=== PATIENT | female | born 1950 | race Asian ===

== ENCOUNTER 2017-11-01 07:19 | Outpatient (CLI) | payer OTHER | END 2017-11-01 08:12 | disposition home or self-care (01) | LOC: LAB 07:19 | DX: E11.9 Type 2 diabetes mellitus without complications (principal); E78.4 Other hyperlipidemia ==

== ENCOUNTER 2017-11-23 09:19 | Outpatient (CLI) | payer OTHER | END 2017-11-23 09:26 | disposition home or self-care (01) | LOC: MAMO-SONO 09:19 | DX: Z12.31 Encounter for screening mammogram for malignant neoplasm of breast (principal); Z87.898 Personal history of other specified conditions; N63.10 Unspecified lump in the right breast, unspecified quadrant; N63.20 Unspecified lump in the left breast, unspecified quadrant ==

== ENCOUNTER 2017-11-23 10:40 | Outpatient (CLI) | payer OTHER | END 2017-11-23 11:30 | disposition home or self-care (01) | LOC: NUCLEAR 10:40 | DX: M81.0 Age-related osteoporosis without current pathological fracture (principal) ==

== ENCOUNTER 2018-02-01 07:13 | Outpatient (CLI) | payer OTHER | END 2018-02-01 07:21 | disposition home or self-care (01) | LOC: LAB 07:13 | DX: I10 Essential (primary) hypertension (principal); Z12.11 Encounter for screening for malignant neoplasm of colon; E78.2 Mixed hyperlipidemia; N39.0 Urinary tract infection, site not specified ==

== ENCOUNTER 2018-05-03 07:59 | Outpatient (CLI) | payer OTHER | END 2018-05-03 08:07 | disposition home or self-care (01) | LOC: LAB 07:59 | DX: D64.89 Other specified anemias (principal); E03.8 Other specified hypothyroidism; N39.0 Urinary tract infection, site not specified ==

== ENCOUNTER 2018-06-28 08:03 | Outpatient (CLI) | payer OTHER | END 2018-06-28 08:23 | disposition home or self-care (01) | LOC: SONOGRAMA 08:03 | DX: E03.8 Other specified hypothyroidism (principal); E04.1 Nontoxic single thyroid nodule ==

== ENCOUNTER 2018-07-18 10:07 | Outpatient (CLI) | payer OTHER | END 2018-07-18 10:13 | disposition home or self-care (01) | LOC: SONOGRAMA 10:07 | DX: E04.2 Nontoxic multinodular goiter (principal) ==

== ENCOUNTER 2018-07-19 08:10 | Outpatient (CLI) | payer OTHER | END 2018-07-19 08:17 | disposition home or self-care (01) | LOC: LAB 08:10 | DX: E03.8 Other specified hypothyroidism (principal) ==

== ENCOUNTER 2018-10-04 08:53 | Outpatient (CLI) | payer OTHER | END 2018-10-04 09:01 | disposition home or self-care (01) | LOC: LAB 08:53 | DX: I10 Essential (primary) hypertension (principal); E78.00 Pure hypercholesterolemia, unspecified; N39.0 Urinary tract infection, site not specified ==

== ENCOUNTER 2018-11-30 10:39 | Outpatient (CLI) | payer OTHER | END 2018-11-30 11:05 | disposition home or self-care (01) | LOC: MAMO-SONO 10:39 | DX: Z12.31 Encounter for screening mammogram for malignant neoplasm of breast (principal); Z87.898 Personal history of other specified conditions; N64.4 Mastodynia ==

== ENCOUNTER 2019-01-03 08:35 | Outpatient (CLI) | payer OTHER | END 2019-01-03 08:41 | disposition home or self-care (01) | LOC: LAB 08:35 | DX: N39.0 Urinary tract infection, site not specified (principal); I10 Essential (primary) hypertension; D64.89 Other specified anemias ==

== ENCOUNTER 2019-06-15 06:46 | Outpatient (CLI) | payer OTHER | END 2019-06-15 06:55 | disposition home or self-care (01) | LOC: LAB 06:46 | DX: I10 Essential (primary) hypertension (principal); Z12.12 Encounter for screening for malignant neoplasm of rectum; E78.00 Pure hypercholesterolemia, unspecified ==

== ENCOUNTER 2019-06-16 09:56 | Outpatient (CLI) | payer OTHER | END 2019-06-16 10:29 | disposition home or self-care (01) | LOC: LAB 09:56 | DX: Z12.12 Encounter for screening for malignant neoplasm of rectum (principal); I10 Essential (primary) hypertension; E78.00 Pure hypercholesterolemia, unspecified ==

== ENCOUNTER 2019-09-09 07:25 | Outpatient (CLI) | payer OTHER | END 2019-09-09 07:29 | disposition home or self-care (01) | LOC: LAB 07:25 | DX: E55.9 Vitamin D deficiency, unspecified (principal); E78.00 Pure hypercholesterolemia, unspecified ==

== ENCOUNTER 2019-12-06 14:12 | Outpatient (CLI) | payer OTHER | END 2019-12-06 14:28 | disposition home or self-care (01) | LOC: MAMO-SONO 14:12 | DX: Z12.31 Encounter for screening mammogram for malignant neoplasm of breast (principal); Z87.898 Personal history of other specified conditions ==

== ENCOUNTER 2019-12-09 08:13 | Outpatient (CLI) | payer OTHER | END 2019-12-09 08:27 | disposition home or self-care (01) | LOC: LAB 08:13 | DX: E78.00 Pure hypercholesterolemia, unspecified (principal); N39.0 Urinary tract infection, site not specified; I10 Essential (primary) hypertension ==

== ENCOUNTER 2019-12-22 14:18 | Outpatient (CLI) | payer OTHER | END 2019-12-22 16:00 | disposition home or self-care (01) | LOC: NUCLEAR 14:18 | DX: M81.0 Age-related osteoporosis without current pathological fracture (principal) ==

== ENCOUNTER 2020-04-09 07:13 | Outpatient (CLI) | payer OTHER | END 2020-04-09 07:17 | disposition home or self-care (01) | LOC: LAB 07:13 | DX: R73.01 Impaired fasting glucose (principal); Z12.12 Encounter for screening for malignant neoplasm of rectum; E78.00 Pure hypercholesterolemia, unspecified ==

== ENCOUNTER 2020-07-09 07:49 | Outpatient (CLI) | payer OTHER | END 2020-07-09 08:23 | disposition home or self-care (01) | LOC: LAB 07:49 | DX: R73.01 Impaired fasting glucose (principal); E78.00 Pure hypercholesterolemia, unspecified ==

== ENCOUNTER 2020-10-09 06:56 | Outpatient (CLI) | payer OTHER | END 2020-10-09 07:02 | disposition home or self-care (01) | LOC: LAB 06:56 | DX: I10 Essential (primary) hypertension (principal); R73.01 Impaired fasting glucose; E78.00 Pure hypercholesterolemia, unspecified ==

== ENCOUNTER 2021-01-08 06:36 | Outpatient (CLI) | payer OTHER | END 2021-01-08 06:46 | disposition home or self-care (01) | LOC: LAB 06:36 | PROVIDERS: ATTEND Obstetrics & Gynecology | DX: D64.89 Other specified anemias (principal); I10 Essential (primary) hypertension; Z12.12 Encounter for screening for malignant neoplasm of rectum; R73.01 Impaired fasting glucose; E78.00 Pure hypercholesterolemia, unspecified; N39.0 Urinary tract infection, site not specified; D50.0 Iron deficiency anemia secondary to blood loss (chronic); K63.89 Other specified diseases of intestine; E55.9 Vitamin D deficiency, unspecified; E78.49 Other hyperlipidemia ==

== ENCOUNTER 2021-01-08 08:19 | Outpatient (CLI) | payer OTHER | END 2021-01-08 08:29 | disposition home or self-care (01) | LOC: MAMO-SONO 08:19 | PROVIDERS: ATTEND Obstetrics & Gynecology | DX: Z12.31 Encounter for screening mammogram for malignant neoplasm of breast (principal); Z87.898 Personal history of other specified conditions; N63.0 Unspecified lump in unspecified breast ==

== ENCOUNTER 2021-04-08 06:48 | Outpatient (CLI) | payer OTHER | END 2021-04-08 06:49 | disposition home or self-care (01) | LOC: LAB 06:48 | DX: R73.01 Impaired fasting glucose (principal); I10 Essential (primary) hypertension; E03.8 Other specified hypothyroidism ==

== ENCOUNTER 2021-04-22 10:54 | Outpatient (CLI) | payer OTHER | END 2021-04-22 11:02 | disposition home or self-care (01) | LOC: SONOGRAMA 10:54 | DX: E03.9 Hypothyroidism, unspecified (principal) ==

== ENCOUNTER 2021-06-18 14:31 | Outpatient (CLI) | payer OTHER | END 2021-06-18 14:32 | disposition home or self-care (01) | LOC: LAB 14:31 | PROVIDERS: ATTEND Internal Medicine Endocrinology, Diabetes & Metabolism | DX: E03.8 Other specified hypothyroidism (principal) ==

== ENCOUNTER 2021-06-25 13:48 | Outpatient (CLI) | payer OTHER | END 2021-06-25 13:49 | disposition home or self-care (01) | LOC: MAMO-SONO 13:48 | PROVIDERS: ATTEND Internal Medicine Endocrinology, Diabetes & Metabolism | DX: N60.11 Diffuse cystic mastopathy of right breast (principal); E04.2 Nontoxic multinodular goiter ==

== ENCOUNTER → 2021-07-08 06:50 | Outpatient (CLI) | payer OTHER | END | disposition home or self-care (01) | LOC: LAB 06:50 | DX: E03.8 Other specified hypothyroidism (principal); E78.00 Pure hypercholesterolemia, unspecified; D64.89 Other specified anemias; R10.84 Generalized abdominal pain; E78.49 Other hyperlipidemia; E55.9 Vitamin D deficiency, unspecified; E11.9 Type 2 diabetes mellitus without complications; Z13.6 Encounter for screening for cardiovascular disorders ==

== ENCOUNTER 2021-09-09 07:31 | Outpatient (CLI) | payer OTHER | END 2021-09-09 07:33 | disposition home or self-care (01) | LOC: LAB 07:31 | PROVIDERS: ATTEND Internal Medicine Cardiovascular Disease | DX: D64.89 Other specified anemias (principal); R10.84 Generalized abdominal pain; E78.49 Other hyperlipidemia; E55.9 Vitamin D deficiency, unspecified; R73.09 Other abnormal glucose; I10 Essential (primary) hypertension ==

== ENCOUNTER 2021-09-30 06:52 | Outpatient (CLI) | payer OTHER | END 2021-09-30 06:59 | disposition home or self-care (01) | LOC: LAB 06:52 | DX: E03.8 Other specified hypothyroidism (principal) ==

== ENCOUNTER 2021-12-31 07:13 | Outpatient (CLI) | payer OTHER | END 2021-12-31 07:14 | disposition home or self-care (01) | LOC: LAB 07:13 | DX: D64.9 Anemia, unspecified (principal); R10.9 Unspecified abdominal pain; E78.5 Hyperlipidemia, unspecified; E55.9 Vitamin D deficiency, unspecified; E11.9 Type 2 diabetes mellitus without complications; I10 Essential (primary) hypertension; E78.00 Pure hypercholesterolemia, unspecified; E03.8 Other specified hypothyroidism; N39.0 Urinary tract infection, site not specified ==

== ENCOUNTER 2022-01-27 13:48 | Outpatient (CLI) | payer OTHER | END 2022-01-27 13:56 | disposition home or self-care (01) | LOC: MAMO-SONO 13:48 | PROVIDERS: ATTEND Obstetrics & Gynecology | DX: Z12.31 Encounter for screening mammogram for malignant neoplasm of breast (principal); N63.0 Unspecified lump in unspecified breast ==

== ENCOUNTER 2022-01-27 14:06 | Outpatient (CLI) | payer OTHER | END 2022-01-27 14:07 | disposition home or self-care (01) | LOC: NUCLEAR 14:06 | PROVIDERS: ATTEND Obstetrics & Gynecology | DX: M81.0 Age-related osteoporosis without current pathological fracture (principal) ==

== ENCOUNTER → 2022-01-27 15:36 | Outpatient (CLI) | payer OTHER | END | disposition home or self-care (01) | LOC: LAB 13:14 | PROVIDERS: ATTEND Obstetrics & Gynecology | DX: M83.9 Adult osteomalacia, unspecified (principal); R97.1 Elevated cancer antigen 125 [CA 125] ==

== ENCOUNTER 2022-04-14 07:14 | Outpatient (CLI) | payer OTHER | END 2022-04-14 07:16 | disposition home or self-care (01) | LOC: LAB 07:14 | DX: R73.01 Impaired fasting glucose (principal); E78.00 Pure hypercholesterolemia, unspecified; I10 Essential (primary) hypertension ==

== ENCOUNTER → 2022-05-20 13:37 | Outpatient (CLI) | payer OTHER | END | disposition home or self-care (01) | LOC: LAB 13:37 | PROVIDERS: ATTEND Podiatrist Foot Surgery | DX: R94.5 Abnormal results of liver function studies (principal) ==

== ENCOUNTER 2022-07-01 07:19 | Outpatient (CLI) | payer OTHER | END 2022-07-01 07:23 | disposition home or self-care (01) | LOC: LAB 07:19 | PROVIDERS: ATTEND Internal Medicine Cardiovascular Disease | DX: D64.9 Anemia, unspecified (principal); R10.9 Unspecified abdominal pain; E78.5 Hyperlipidemia, unspecified; E55.9 Vitamin D deficiency, unspecified; E11.9 Type 2 diabetes mellitus without complications ==

== ENCOUNTER 2022-11-29 16:25 | Emergency (ER) | payer OTHER ==
[~2022-11-29] VITALS: Ht 162.6 cm; Wt 64.9 kg
[2022-11-29] MEDS ORDERED: ATORVASTATIN CA20 MG PO (16:36)
== END 2022-11-29 18:02 | disposition home or self-care (01) ==
LOC: ER 16:25
DX: I10 Essential (primary) hypertension (principal)

== ENCOUNTER → 2022-11-30 08:27 | Outpatient (CLI) | payer OTHER | END | disposition home or self-care (01) | LOC: LAB 08:27 | DX: I10 Essential (primary) hypertension (principal); E78.00 Pure hypercholesterolemia, unspecified; R73.01 Impaired fasting glucose; Z12.11 Encounter for screening for malignant neoplasm of colon; N39.0 Urinary tract infection, site not specified; D64.9 Anemia, unspecified; R10.9 Unspecified abdominal pain; E55.9 Vitamin D deficiency, unspecified ==

== ENCOUNTER → 2022-11-30 | Emergency (ER) | payer OTHER ==
[~2022-11-30] VITALS: Ht 162.6 cm; Wt 64.9 kg
[~2022-11-30] MED LIST: ATORVASTATIN CA20 MG PO
== END | disposition home or self-care (01) ==
LOC: ER 09:08
DX: R51.9 Headache, unspecified (principal)

== ENCOUNTER 2023-02-09 10:32 | Outpatient (CLI) | payer OTHER | END 2023-02-09 10:38 | disposition home or self-care (01) | LOC: MAMO-SONO 10:32 | PROVIDERS: ATTEND Obstetrics & Gynecology Obstetrics | DX: Z12.31 Encounter for screening mammogram for malignant neoplasm of breast (principal); N64.0 Fissure and fistula of nipple; N63.0 Unspecified lump in unspecified breast; R10.2 Pelvic and perineal pain ==

== ENCOUNTER 2023-03-02 07:13 | Outpatient (CLI) | payer OTHER | END 2023-03-02 07:16 | disposition home or self-care (01) | LOC: LAB 07:13 | DX: E03.8 Other specified hypothyroidism (principal); I10 Essential (primary) hypertension; R73.01 Impaired fasting glucose; E78.00 Pure hypercholesterolemia, unspecified ==

== ENCOUNTER → 2023-05-29 08:23 | Outpatient (CLI) | payer OTHER | END | disposition home or self-care (01) | LOC: LAB 08:23 | DX: N39.0 Urinary tract infection, site not specified (principal); R73.01 Impaired fasting glucose; Z13.1 Encounter for screening for diabetes mellitus; E78.2 Mixed hyperlipidemia; I11.9 Hypertensive heart disease without heart failure; Z68.24 Body mass index [BMI] 24.0-24.9, adult ==

== ENCOUNTER → 2023-10-04 07:07 | Outpatient (CLI) | payer OTHER ==
[2023-10-04 08:07] LABS: URINE APPEARANCE Clear; URINE BILIRRUBIN Negative (NEGATIVE); URINE BLOOD Small; URINE COLOR Yellow; URINE GLUCOSE Negative (NEGATIVE); URINE LEUKOCYTE Moderate; URINE NITRATE Negative; URINE PROTEIN Negative (NEGATIVE); URINE UROBILINOGEN 0.2 E.U./dl
[2023-10-04 08:08] LABS: URINE EPITHELIAL CELLS 5.8 uL (0.0-38.8); URINE RBC 12.2 uL (0.0-20.8); URINE WBC 59.8 uL (0.0-23.2)
[2023-10-04 09:12] LABS: HEMOGLOBIN 12.8 g/dL (12.0-15.00); MEAN CELL VOLUME 91.4 fL (80.00-100.00); MEAN CORPUSCULAR HEMOGLOBIN 30.8 pg (27.00-32.0); MEAN CORPUSCULAR HGB CONC 33.7 g/dl (32.0-36.0); PLATELET COUNT 266 K/uL (150-450); RED BLOOD COUNT 4.16 M/uL (4.00-6.00); RED CELL DISTRIBUTION WIDTH 13.3 % (11.5-14.5)
[2023-10-04 09:53] LABS: ALBUMIN 3.6 gm/dL (3.4-5.0); BILIRUBIN TOTAL 0.41 mg/dL (0.3-1.2); CALCIUM 9.2 mg/dL (8.5-10.1); CHOL HDL RATIO 2.1 (0-5.0); CREATININE SERUM 0.67 mg/dL (0.55-1.02); GFR 86.76; GLOBULINA 3.5 G/DL (2.4-3.5); POTASSIUM 4.16 mEq/L (3.5-5.1); TOTAL PROTEIN 7.1 gm/dL (6.4-8.2)
== END | disposition home or self-care (01) ==
LOC: LAB 07:07
DX: R73.01 Impaired fasting glucose (principal); N39.0 Urinary tract infection, site not specified; D64.9 Anemia, unspecified; R10.9 Unspecified abdominal pain; E78.5 Hyperlipidemia, unspecified; R73.09 Other abnormal glucose

== ENCOUNTER 2024-01-04 07:26 | Outpatient (CLI) | payer OTHER ==
[2024-01-04 08:09] LABS: URINE APPEARANCE Clear; URINE BILIRRUBIN Negative (NEGATIVE); URINE BLOOD Trace; URINE COLOR Yellow; URINE GLUCOSE Negative (NEGATIVE); URINE LEUKOCYTE Negative; URINE NITRATE Negative; URINE PROTEIN Negative (NEGATIVE); URINE UROBILINOGEN 0.2 E.U./dl
[2024-01-04 08:10] LABS: HEMATOCRIT 38.4 % (36.0-45.00); HEMOGLOBIN 13.2 g/dL (12.0-15.00); MEAN CELL VOLUME 90.7 fL (80.00-100.00); MEAN CORPUSCULAR HEMOGLOBIN 31.2 pg (27.00-32.0); MEAN CORPUSCULAR HGB CONC 34.3 g/dl (32.0-36.0); PLATELET COUNT 230 K/uL (150-450); RED BLOOD COUNT 4.23 M/uL (4.00-6.00); RED CELL DISTRIBUTION WIDTH 14.4 % (11.5-14.5)
[2024-01-04 08:13] LABS: URINE BACTERIA 26.4 uL (0.0-1933); URINE RBC 2.2 uL (0.0-20.8)
[2024-01-04 08:40] LABS: ALBUMIN 3.9 gm/dL (3.4-5.0); BILIRUBIN TOTAL 0.53 mg/dL (0.3-1.2); CALCIUM 9.3 mg/dL (8.5-10.1); CHOL HDL RATIO 2.3 (0-5.0); CREATININE SERUM 0.71 mg/dL (0.55-1.02); GFR 80.92; GLOBULINA 3.1 G/DL (2.4-3.5); POTASSIUM 4.39 mEq/L (3.5-5.1)
[2024-01-04 09:21] LABS: URINE EPITHELIAL CELLS 0.7 uL (0.0-38.8); URINE WBC 0.9 uL (0.0-23.2)
== END 2024-01-04 07:27 | disposition home or self-care (01) ==
LOC: LAB 07:26
DX: D64.9 Anemia, unspecified (principal); I10 Essential (primary) hypertension; N39.0 Urinary tract infection, site not specified

== ENCOUNTER 2024-07-06 07:08 | Outpatient (CLI) | payer OTHER ==
[2024-07-06 07:45] LABS: HEMATOCRIT 38.9 % (36.0-45.00); HEMOGLOBIN 13.4 g/dL (12.0-15.00); MEAN CELL VOLUME 91.9 fL (80.00-100.00); MEAN CORPUSCULAR HEMOGLOBIN 31.6 pg (27.00-32.0); MEAN CORPUSCULAR HGB CONC 34.4 g/dl (32.0-36.0); PLATELET COUNT 232 K/uL (150-450); RED BLOOD COUNT 4.23 M/uL (4.00-6.00); RED CELL DISTRIBUTION WIDTH 13.5 % (11.5-14.5)
[2024-07-06 07:46] LABS: PH,URINE 6.5 (5.0-8.0); URINE APPEARANCE Clear; URINE BILIRRUBIN Negative (NEGATIVE); URINE BLOOD Negative; URINE COLOR Yellow; URINE GLUCOSE Negative (NEGATIVE); URINE KETONE Negative (NEGATIVE); URINE LEUKOCYTE Negative; URINE NITRATE Negative; URINE PROTEIN Negative (NEGATIVE); URINE UROBILINOGEN 0.2 E.U./dl
[2024-07-06 07:51] LABS: URINE BACTERIA 26.4 uL (0.0-1933); URINE RBC 2.4 uL (0.0-20.8); URINE WBC 2.5 uL (0.0-23.2)
[2024-07-06 08:13] LABS: URINE EPITHELIAL CELLS 0.6 uL (0.0-38.8)
[2024-07-06 08:47] LABS: ALBUMIN 4.1 gm/dL (3.4-5.0); BILIRUBIN TOTAL 0.45 mg/dL (0.3-1.2); CALCIUM 9.4 mg/dL (8.5-10.1); CHOL HDL RATIO 2.6 (0-5.0); CREATININE SERUM 0.66 mg/dL (0.55-1.02); GFR 88.03; GLOBULINA 3.4 G/DL (2.4-3.5); POTASSIUM 3.99 mEq/L (3.5-5.1); TOTAL PROTEIN 7.5 gm/dL (6.4-8.2)
== END 2024-07-06 07:13 | disposition home or self-care (01) ==
LOC: LAB 07:08
DX: D64.9 Anemia, unspecified (principal); E55.9 Vitamin D deficiency, unspecified; E78.00 Pure hypercholesterolemia, unspecified; N39.0 Urinary tract infection, site not specified; R10.9 Unspecified abdominal pain; E78.5 Hyperlipidemia, unspecified; E11.9 Type 2 diabetes mellitus without complications; E78.2 Mixed hyperlipidemia

== ENCOUNTER 2024-12-07 11:52 | Outpatient (CLI) | payer OTHER | END 2024-12-07 12:00 | disposition home or self-care (01) | LOC: RAD 11:52 | PROVIDERS: ATTEND Orthopaedic Surgery | DX: M54.2 Cervicalgia (principal); M25.551 Pain in right hip ==

== ENCOUNTER 2024-12-09 07:36 | Outpatient (CLI) | payer OTHER ==
[2024-12-09 09:06] LABS: URINE APPEARANCE Clear; URINE BILIRRUBIN Negative (NEGATIVE); URINE BLOOD Negative; URINE COLOR Yellow; URINE GLUCOSE Negative (NEGATIVE); URINE KETONE Negative (NEGATIVE); URINE LEUKOCYTE Trace; URINE NITRATE Negative; URINE PROTEIN Negative (NEGATIVE); URINE UROBILINOGEN 0.2 E.U./dl
[2024-12-09 09:11] LABS: URINE BACTERIA 17.1 uL (0.0-1933); URINE EPITHELIAL CELLS 1.5 uL (0.0-38.8); URINE RBC 2.7 uL (0.0-20.8); URINE WBC 4.2 uL (0.0-23.2)
[2024-12-09 09:32] LABS: CALCIUM 9.3 mg/dL (8.5-10.1); CREATININE SERUM 0.63 mg/dL (0.55-1.02); GFR 92.63; POTASSIUM 4.63 mEq/L (3.5-5.1)
== END 2024-12-09 07:48 | disposition home or self-care (01) ==
LOC: LAB 07:36
PROVIDERS: ATTEND Orthopaedic Surgery
DX: N39.0 Urinary tract infection, site not specified (principal); E78.00 Pure hypercholesterolemia, unspecified; I10 Essential (primary) hypertension; R73.01 Impaired fasting glucose

== ENCOUNTER 2025-02-20 14:49 | Outpatient (CLI) | payer OTHER | END 2025-02-20 14:50 | disposition home or self-care (01) | LOC: MAMO-SONO 14:49 | DX: Z12.31 Encounter for screening mammogram for malignant neoplasm of breast (principal) ==

== ENCOUNTER 2025-02-26 09:57 | Outpatient (CLI) | payer OTHER | END 2025-02-26 10:05 | disposition home or self-care (01) | LOC: RAD 09:57 | PROVIDERS: ATTEND General Practice | DX: M54.50 Low back pain, unspecified (principal); M54.6 Pain in thoracic spine; M54.2 Cervicalgia ==

== ENCOUNTER → 2025-03-05 06:53 | Outpatient (CLI) | payer OTHER ==
[2025-03-05 07:48] LABS: BASO % 1.3 % (0.1-1.2); EOS # 0.25 (0.04-0.54); EOS % 3.9 % (0.7-7.0); HEMATOCRIT 32.8 % (34.1-44.9); HEMOGLOBIN 11.2 g/dL (11.2-15.7); LYMPH # 2.33 (1.18-3.74); LYMPH % 36.4 % (19.3-53.1); MEAN CORPUSCULAR HEMOGLOBIN 30.5 pg (25.6-32.2); MONO # 0.41 (0.24-0.82); MONO % 6.4 % (4.7-12.5); NEUT # 3.31 (1.56-6.13); NEUT % 51.7 % (34.0-71.1); PLATELET COUNT 239 K/uL (163-369); RED BLOOD COUNT 3.67 M/uL (3.93-5.22); RED CELL DISTRIBUTION WIDTH 12.9 % (11.6-14.4)
[2025-03-05 08:16] LABS: URINE APPEARANCE Clear; URINE BILIRRUBIN Negative (NEGATIVE); URINE BLOOD Trace; URINE COLOR Yellow; URINE GLUCOSE Negative (NEGATIVE); URINE KETONE Negative (NEGATIVE); URINE LEUKOCYTE Large; URINE NITRATE Negative; URINE PROTEIN Negative (NEGATIVE); URINE UROBILINOGEN 0.2 E.U./dl
[2025-03-05 08:21] LABS: URINE BACTERIA 78.2 uL (0.0-1933); URINE EPITHELIAL CELLS 5.5 uL (0.0-38.8); URINE RBC 7.8 uL (0.0-20.8); URINE WBC 65.6 uL (0.0-23.2)
[2025-03-05 08:54] LABS: ALBUMIN 3.8 gm/dL (3.4-5.0); BILIRUBIN TOTAL 0.34 mg/dL (0.3-1.2); CALCIUM 8.9 mg/dL (8.5-10.1); CHOL HDL RATIO 2.9 (0-5.0); CREATININE SERUM 0.67 mg/dL (0.55-1.02); GFR 86.27; GLOBULINA 2.9 G/DL (2.4-3.5); POTASSIUM 4.13 mEq/L (3.5-5.1); TOTAL PROTEIN 6.7 gm/dL (6.4-8.2)
== END | disposition home or self-care (01) ==
LOC: LAB 06:53
PROVIDERS: ATTEND Internal Medicine Cardiovascular Disease
DX: D64.9 Anemia, unspecified (principal); R10.9 Unspecified abdominal pain; E78.5 Hyperlipidemia, unspecified; E11.9 Type 2 diabetes mellitus without complications; N39.0 Urinary tract infection, site not specified; E78.00 Pure hypercholesterolemia, unspecified; Z13.9 Encounter for screening, unspecified

== ENCOUNTER 2025-06-02 07:18 | Outpatient (CLI) | payer OTHER ==
[2025-06-02 08:32] LABS: BUN CREA RATIO 26.0 (7.0-25.0); CREATININE SERUM 0.74 mg/dL (0.55-1.02); GFR 76.93; GLUCOSE FASTING 112.0 mg/dL (65-100); OSMOLALITY SERUM 282.0 MOSM/KG (275-295)
== END 2025-06-02 07:20 | disposition home or self-care (01) ==
LOC: LAB 07:18
DX: I10 Essential (primary) hypertension (principal); E11.69 Type 2 diabetes mellitus with other specified complication; E78.00 Pure hypercholesterolemia, unspecified

== ENCOUNTER 2025-10-06 07:53 | Outpatient (CLI) | payer OTHER ==
[2025-10-06 08:48] LABS: BASO % 1.2 % (0.1-1.2); EOS # 0.32 (0.04-0.54); EOS % 4.4 % (0.7-7.0); LYMPH # 2.47 (1.18-3.74); LYMPH % 34.2 % (19.3-53.1); MEAN PLATELET VOLUME 9.10 fl (9.4-12.4); MONO # 0.35 (0.24-0.82); MONO % 4.8 % (4.7-12.5); NEUT # 3.96 (1.56-6.13); NEUT % 55.0 % (34.0-71.1); RED CELL DISTRIBUTION WIDTH 12.5 % (11.6-14.4)
[2025-10-06 08:53] LABS: URINE APPEARANCE Clear; URINE BILIRRUBIN Negative (NEGATIVE); URINE BLOOD Negative; URINE COLOR Yellow; URINE GLUCOSE Negative (NEGATIVE); URINE KETONE Negative (NEGATIVE); URINE LEUKOCYTE Moderate; URINE NITRATE Negative; URINE PROTEIN Negative (NEGATIVE); URINE UROBILINOGEN 0.2 E.U./dl
[2025-10-06 08:57] LABS: URINE BACTERIA 273.3 uL (0.0-1933); URINE EPITHELIAL CELLS 12.1 uL (0.0-38.8); URINE RBC 9.9 uL (0.0-20.8); URINE WBC 85.6 uL (0.0-23.2)
[2025-10-06 09:25] LABS: URINE CAST 0.00 uL (0.0-1.40)
[2025-10-06 10:03] LABS: ALT/SGPT 36.0 U/L (12-78); AST/SGOT 16.0 U/L (15-37); BILIRUBIN TOTAL 0.5 mg/dL (0.3-1.2); BUN CREA RATIO 25.0 (7.0-25.0); CHOL HDL RATIO 2.2 (0-5.0); CREATININE SERUM 0.76 mg/dL (0.55-1.02); GFR 74.6; GLOBULINA 3.4 G/DL (2.4-3.5); GLUCOSE FASTING 100.0 mg/dL (65-100); HDL 65.0 mg/dl (40-60); LDL 54.0 mg/dl (0-130); OSMOLALITY SERUM 285.0 MOSM/KG (275-295); VLDL 26.0 (0-39)
[2025-10-06 10:04] LABS: TSH 0.234 uIU/mL (0.358-3.74)
== END 2025-10-06 07:58 | disposition home or self-care (01) ==
LOC: LAB 07:53
PROVIDERS: ATTEND Internal Medicine Cardiovascular Disease
DX: D64.9 Anemia, unspecified (principal); N39.0 Urinary tract infection, site not specified; R10.9 Unspecified abdominal pain; E03.9 Hypothyroidism, unspecified; E78.5 Hyperlipidemia, unspecified; E11.9 Type 2 diabetes mellitus without complications